=== PATIENT | female | born 1955 | race Caucasian/White ===

== ENCOUNTER 2017-03-18 13:19 | Outpatient (CLI) | payer OTHER ==
--- NOTE | 2017-03-18 15:30 | NM ---
CARDIAC MUGA SCAN: DATE: 03/18/17. HISTORY: Malignant neoplasm left breast. This examination is being performed secondary to chemotherapy treatm ent. COMPARISON: 12/03/16. FINDINGS: Planar imaging again shows no focal wall motion abnormalities involving the left ventricle. Calculat ed left ventricular ejection fraction is 59.1%. Left ventricular ejection fraction on the prior stud y was 56%. IMPRESSION: Left ventricular ejection fraction of 59.1%. POS: [facility]
== END 2017-03-18 13:20 | disposition home or self-care (01) ==
LOC: NM 13:19
PROVIDERS: ATTEND Internal Medicine Hematology & Oncology
DX: C50.112 Malignant neoplasm of central portion of left female breast (principal)
CPT/HCPCS: 78472; A9604

== ENCOUNTER 2017-08-12 08:29 | Outpatient (CLI) | payer OTHER ==
[2017-08-12] MEDS ORDERED: ISOVUE-370 76%-LOCM 1 ML ONE (15:49)
== END 2017-08-12 08:30 | disposition home or self-care (01) ==
LOC: BICCT 08:29
PROVIDERS: ATTEND Internal Medicine Hematology & Oncology
DX: C50.112 Malignant neoplasm of central portion of left female breast (principal)
CPT/HCPCS: 71260; 74177

== ENCOUNTER 2018-02-11 09:57 | Outpatient (CLI) | payer OTHER ==
--- NOTE | 2018-02-11 13:18 | CT ---
NECK CT WITH CONTRAST: CHEST CT WITH CONTRAST: ABDOMEN CT WITH CONTRAST: PELVIS CT WITH CONTRAST: HISTORY: Left breast cancer. COMPARISON: 08/12/2017 06/29/2016 TECHNIQUE: Neck, chest, abdomen, and pelvis CT was performed with IV contrast. Enteric contrast was also admini stered. Reformatted images were submitted for interpretation. FINDINGS: NECK: The visualized brain parenchyma is unremarkable. Adequate aeration of the visualized paranasa l sinuses and mastoid air cells. The aerodigestive tract is patent. No mucosal abnormality. Limite d evaluation of the oral cavity due to dental amalgam artifact. Midline fatty raphe of the tongue is preserved. The epiglottis has a normal caliber. Pre-epiglottic fat is preserved. There is no prev ertebral soft tissue swelling. Symmetric attenuation of the sternocleidomastoid muscle, parotid glands, and submandibular glands. Unremarkable thyroid gland. No evidence of lymphadenopathy by size criteria. Nonenlarged left level II lymph node, measuring 0.7 x 0.8 cm. Nonenlarged right level II lymph node, measuring 1.2 x 0.4 cm. Central spinal canal and neural foramina are patent. Evaluation is limited by technique. CHEST: Persistent mild dilatation of the ascending thoracic aorta, measuring 3.8 x 3.8 cm at the car mabel. The visualized central pulmonary arteries are unremarkable. Trachea and central bronchi are patent. Chronic lung parenchymal changes in the left lung apex and m edial left upper lobe, likely representing post treatment change. No suspicious masses or consolidat ion in the left or right lung. No pneumothorax or pleural fluid. No evidence of lymphadenopathy in the left or right axilla. Straightening of the left axillary fat is presumed to be due to post treatment change. ABDOMEN: The portal vein is patent. Unremarkable gallbladder. The liver, spleen, pancreas, and adrenal glands have appropriate enhancement. No gastrohepatic, retrocrural, or periportal lymphadenopathy. No mesenteric mass, lymphadenopathy, free air, or free fluid. No evidence of obstructive uropathy. Symmetric enhancement of the kidneys. No evidence of bowel obstruction. The ileocecal junction is normal. No evidence of colonic obstruct ion. Occasional diverticulum in the sigmoid colon. PELVIS: No mass, lymphadenopathy, free air, or significant free fluid. There may be a small amount of fluid in the pelvis. The uterus and adnexal structures are unremarkable. No lytic or blastic lesions in the osseous structures. IMPRESSION: No evidence of metastases or malignancy in the neck, chest, abdomen, or pelvis. POS: [facility]
[2018-02-11] MEDS ORDERED: ISOVUE-370 76%-LOCM 1 ML ONE (15:57)
== END 2018-02-11 09:58 | disposition home or self-care (01) ==
LOC: BICCT 09:57
PROVIDERS: ATTEND Internal Medicine Hematology & Oncology
DX: C50.112 Malignant neoplasm of central portion of left female breast (principal)
CPT/HCPCS: 70491; 71260; 74177; 82565

== ENCOUNTER 2018-10-06 09:27 | Outpatient (CLI) | payer OTHER ==
[2018-10-06] MEDS ORDERED: ISOVUE-370 76%-LOCM 1 ML ONE (09:52)
--- NOTE | 2018-10-06 11:13 | CT ---
CT Chest W Con CT abdomen with contrast History: CVA 50.112 breast cancer Comparison: CT January 2018 Findings: Similar appearance left apical scarring as well as lingular scarring. No suspicious pulmona ry nodule. No pneumothorax. No effusion. Thyroid is unremarkable. No mediastinal adenopathy. Ascertaining aorta measures up to 3.6 cm in size. No mediastinal adenopathy. No pericardial effusion. Bilateral mastectomies. Upper abdomen is normal. Liver is normal. Spleen is normal. Pancreas is normal. Adrenal glands are no rmal. No hydronephrosis. Portal vein is patent. Advanced degenerative disease lumbosacral junction. Impression: No evidence for metastatic disease within the chest or abdomen.
== END 2018-10-06 09:28 | disposition home or self-care (01) ==
LOC: BICCT 09:27
PROVIDERS: ATTEND Internal Medicine Hematology & Oncology
DX: C50.112 Malignant neoplasm of central portion of left female breast (principal)
CPT/HCPCS: 71260; 74160; 74170; 82565

== ENCOUNTER 2019-04-08 09:30 | Outpatient (CLI) | payer OTHER ==
[2019-04-08] MEDS ORDERED: Iopamidol-370 76% 500 ML 1 ML ONE (11:00)
--- NOTE | 2019-04-08 11:34 | CT ---
CT Chest W Con CT abdomen with contrast History: Breast cancer. Comparison: CT exam October 06, 2018. Findings: The fibrotic changes in the left lung apex is similar with peripheral bronchiectasis. Mild lingular scarring. No new suspicious pulmonary nodule. No pneumothorax. No effusion. No axillary adenopathy. Left axillary surgical clips. Right axillary surgical clips. Bilateral mastec tomies. No internal mammary adenopathy. The ascending aorta measures up to 3.6 cm. Remainder of the aortic co ntour is not enlarged. The spleen, pancreas, liver, gallbladder are all unremarkable. No hydronephrosis. No retroperitoneal periaortic adenopathy. No dilated loops of large or small bowel in the abdomen. No suspicious osteolytic or osteoblastic foci. Sternum and manubrium are intact. The clavicles are in tact. The scapula are intact. Impression: No metastatic disease within the chest, abdomen, or pelvis.
== END 2019-04-08 09:31 | disposition home or self-care (01) ==
LOC: BICCT 09:30
PROVIDERS: ATTEND Internal Medicine Hematology & Oncology
DX: C50.112 Malignant neoplasm of central portion of left female breast (principal)
CPT/HCPCS: 36415; 71260; 74160; 80053; 82306; 84443; 85025; Q9967

== ENCOUNTER 2019-11-16 07:48 | Outpatient (CLI) | payer MEDICARE ==
--- NOTE | 2019-11-16 08:38 | CT ---
CT CHEST, ABDOMEN WITH IV CONTRAST: HISTORY: Breast cancer COMPARISON: 04/08/2019 FINDINGS: No evidence of mediastinal, hilar or axillary mass or lymphadenopathy seen. Scarring in the lung apic es, left greater than right and the lingula are again seen. No suspicious lung nodules are identified. No pleural or pericardial effusions are seen. The liver, spleen, pancreas, adrenal glands and kidneys are normal. No calcified gallstones are seen. No free air, free fluid or lymphadenopathy seen in the abdomen. No osteolytic or osteoblastic lesions are seen. IMPRESSION: No evidence of metastatic disease in the chest or abdomen.
[2019-11-16] MEDS ORDERED: Iopamidol-370 76% 500 ML 1 ML ONE (13:25)
== END 2019-11-16 07:49 | disposition home or self-care (01) ==
LOC: BICCT 07:48
PROVIDERS: ATTEND Internal Medicine Hematology & Oncology
DX: C50.112 Malignant neoplasm of central portion of left female breast (principal)
CPT/HCPCS: 71260; 74160

== ENCOUNTER 2020-05-17 08:50 | Outpatient (CLI) | payer MEDICARE ==
--- NOTE | 2020-05-17 09:56 | CT ---
CT CHEST AND ABDOMEN WITH CONTRAST CLINICAL INDICATION: Breast cancer. Follow-up evaluation. COMPARISON: None FINDINGS: CT THORAX: Aorta: Ascending thoracic aorta is ectatic measuring 3.9 cm. No aortic dissection is seen. Lungs: Parenchymal opacity left lung apex is again seen likely due to pleural-parenchymal scarring wh ich is unchanged compared to prior study and also stable compared to study on 04/08/2019. Minimal peripheral bronchiectasis is also present in this region. Minimal right apical pleural parenchymal sc arring is present. Minimal scarring is again seen in the lingula. No new area of consolidation, pulmonary nodule, mass, or pleural effusion is identified. Mediastinum: No enlarged lymph nodes are seen by CT size criteria. Thyroid gland: Normal CT appearance. Osseous structures: Mild degenerative changes are seen in the spine with S-shaped curvature of thorac olumbar spine. No suspicious lytic or sclerotic osseous lesions are identified. Chest wall: Evidence of bilateral mastectomies. Surgical clip is seen in the left axillary region. CT ABDOMEN: Liver: Within normal limits Spleen: Within normal limits Gallbladder: Incompletely distended. Pancreas: Within normal limits Adrenal glands: Within normal limits Kidneys: Within normal limits Vessels: Abdominal aorta is normal in caliber. Peritoneum and retroperitoneum: No free fluid, fluid collection, or lymphadenopathy is seen in the ab domen. Bowel: Loops of small bowel are normal in caliber. Osseous structures: Degenerative changes in the lumbar spine. No suspicious lytic or sclerotic osseou s lesion is identified. IMPRESSION: Stable CT chest and abdomen without evidence of metastatic disease.
[2020-05-17] MEDS ORDERED: Iopamidol 370 76% 100 ML VIAL ONE (13:55)
== END 2020-05-17 08:51 | disposition home or self-care (01) ==
LOC: BICCT 08:50
PROVIDERS: ATTEND Internal Medicine Hematology & Oncology
DX: C50.112 Malignant neoplasm of central portion of left female breast (principal)
CPT/HCPCS: 71260; 74160; Q9967

== ENCOUNTER 2021-05-18 10:28 | Outpatient (CLI) | payer MEDICARE | END 2021-05-18 10:29 | disposition home or self-care (01) | LOC: BICCT 10:28 | PROVIDERS: ATTEND Internal Medicine Hematology & Oncology | DX: C50.112 Malignant neoplasm of central portion of left female breast (principal) | CPT/HCPCS: 71260; 74160; 82565 ==

== ENCOUNTER 2021-11-17 13:02 | Outpatient (CLI) | payer MEDICARE | END 2021-11-17 13:03 | disposition home or self-care (01) | LOC: CT 13:02 | PROVIDERS: ATTEND Internal Medicine Hematology & Oncology | DX: C50.112 Malignant neoplasm of central portion of left female breast (principal) | CPT/HCPCS: 71260; 74160 ==